=== PATIENT | female | born 1970 | race Caucasian/White ===

== ENCOUNTER 2018-10-24 00:28 | Day surgery (SDC) | payer OTHER ==
[~2018-10-24 00:28] MED LIST: BIRTH CONTROL PILL; IRON150C PO; MULVITMINE PO
[2018-10-24] MEDS ORDERED: LEVSOD150 PO (08:43)
[2018-10-24] MEDS ORDERED: Vitamin D2000 UNIT PO (08:44)
== END 2018-10-24 08:58 | disposition home or self-care (01) ==
LOC: ATC 00:28
DX: C73 Malignant neoplasm of thyroid gland (principal); E89.0 Postprocedural hypothyroidism; Z86.718 Personal history of other venous thrombosis and embolism
CPT/HCPCS: J3240

== ENCOUNTER 2018-10-25 00:07 | Day surgery (SDC) | payer OTHER ==
[~2018-10-25 00:07] MED LIST changes: +LEVSOD150 PO; +Vitamin D2000 UNIT PO
== END 2018-10-25 08:23 | disposition home or self-care (01) ==
LOC: ATC 00:07
DX: C73 Malignant neoplasm of thyroid gland (principal); E03.9 Hypothyroidism, unspecified; Z86.718 Personal history of other venous thrombosis and embolism; Z79.899 Other long term (current) drug therapy
CPT/HCPCS: 96372; J3240

== ENCOUNTER 2018-12-27 10:24 | Day surgery (SDC) | payer OTHER, BC ==
[~2018-12-27] VITALS: Ht 175.3 cm; Wt 100.9 kg
[~2018-12-27 10:24] MED LIST changes: +SYNTHROID175 MCG PO; +WOMEN'S DAILY1 EAC1 PO
[2018-12-27] MEDS ORDERED: Vitamin D2000 UNIT (10:49)
--- NOTE | 2018-12-27 11:27 | NUR ---
12/27/18 1127 Reggie Chu UPDATED PT ON DELAY D/T DR CRUZ HAVING AN EMERGENT CASE NEXT DOOR. PT STATES AN UNDERSTANDING. CALL LIGHT WITHIN REACH.
== END 2018-12-27 13:52 | disposition home or self-care (01) ==
LOC: ORSCSDS 10:24
PROVIDERS: Internal Medicine Gastroenterology
PROC: 0DBP8ZX Excision of Rectum, Via Natural or Artificial Opening Endoscopic, Diagnostic (ICD-10-PCS; principal; 2018-12-27 11:45)
PROC: 0DBK8ZX Excision of Ascending Colon, Via Natural or Artificial Opening Endoscopic, Diagnostic (ICD-10-PCS; principal; 2018-12-27 11:45)
DX: Z12.11 Encounter for screening for malignant neoplasm of colon (principal); D12.2 Benign neoplasm of ascending colon; D12.8 Benign neoplasm of rectum; K57.30 Diverticulosis of large intestine without perforation or abscess without bleeding; Z79.899 Other long term (current) drug therapy
CPT/HCPCS: 88305; J2704; J7120